=== PATIENT | female | born 2000 | race Caucasian/White ===

== ENCOUNTER 2021-07-14 17:50 | Emergency (ER) | payer OTHER ==
[~2021-07-14] VITALS: Ht 177.8 cm; Wt 70.0 kg
[2021-07-14 17:54] VITALS: BP 120/81
[2021-07-14] MEDS ORDERED: dexamethasone 4mg/ml inj IM STA (19:13)
[2021-07-14] MEDS ORDERED: ibuprofen tablet 400 MG TABLET PO ONE (19:15)
[2021-07-14] MEDS ORDERED: IBUP-1986 PO (19:21)
== END 2021-07-14 19:52 | disposition home or self-care (01) ==
LOC: ER 17:52
DX: G43.909 Migraine, unspecified, not intractable, without status migrainosus (principal); Z79.899 Other long term (current) drug therapy
CPT/HCPCS: 96372; 99283; J1100

== ENCOUNTER 2023-01-23 11:08 | Emergency (ER) | payer OTHER ==
[~2023-01-23] VITALS: Ht 177.8 cm; Wt 59.8 kg
[~2023-01-23 11:08] MED LIST: IBUP-1986 PO
[2023-01-23 11:10] VITALS: BP 121/68; PULSE 101; TEMP 98.5; O2SAT 99
[2023-01-23] MEDS ORDERED: dexamethasone sod phosphate 10mg/ml inj IM STA (11:39)
[2023-01-23] MEDS ORDERED: ketorolac trometh. 30mg/ml inj. IM ONE (11:40)
[2023-01-23 11:52] VITALS: RESP 18
--- NOTE | 2023-01-23 23:16 | NUR ---
patient d/c on day shift unable to review assesment appropriately.
== END 2023-01-23 13:11 | disposition home or self-care (01) ==
LOC: ER 11:08
DX: G43.909 Migraine, unspecified, not intractable, without status migrainosus (principal); R11.2 Nausea with vomiting, unspecified; Z79.899 Other long term (current) drug therapy
CPT/HCPCS: 96372; 99284; J1100; J1885

== ENCOUNTER 2023-07-07 06:49 | Outpatient (CLI) | payer OTHER ==
[2023-07-07] VITALS (17 sets, daily range): BP systolic 68–131; BP diastolic 44–83; PULSE 77–120
== END 2023-07-07 23:59 | disposition home or self-care (01) ==
LOC: CARD DIAG 06:49
PROVIDERS: ATTEND Internal Medicine Interventional Cardiology
DX: R55 Syncope and collapse (principal)
CPT/HCPCS: 93660